=== PATIENT | male | born 1960 | race Caucasian/White ===

== ENCOUNTER 2018-12-05 09:02 | Day surgery (SDC) | payer BC, MEDICARE ==
[2018-11-30 14:26] VITALS: BMI 28.0
[~2018-12-05 09:02] MED LIST: LACTATED RINGERS 1,000 ML IV SCH
[2018-12-05 09:30] VITALS: TEMP 97.6
[2018-12-05] MEDS ORDERED: LIDOCAINE 1% 20 ML VIAL (10MG/ML) FOR IV START INTRADERMA ONE (09:37)
[2018-12-05] MEDS ORDERED: PROPOFOL 10 MG/ML 20 ML VIAL IV ONE (10:08)
--- NOTE | 2018-12-05 10:15 | P.GSHP ---
History of Present Illness H&P Date: 12/05/18 Chief Complaint: Screening colonoscopy This is a 58-year-old male who presents today for screening colonoscopy. Patient has complaints of hemorrhoids. Past Medical History Past Medical History: COPD, Hyperlipidemia, Hypertension, Myocardial Infarction ([place]), Osteoarthritis (OA), Pneumonia, Prostate Disorder Additional Past Medical History / Comment(s): states no current RX for COPD, severe carpal tunnel both wrists, hemmorhoids, occasionally wears back brace Last Myocardial Infarction Date:: 2006 History of Any Multi-Drug Resistant Organisms: None Reported Past Surgical History: Back Surgery, Heart Catheterization, Hernia Repair, Orthopedic Surgery Additional Past Surgical History / Comment(s): back rods and screws, left shoulder surg, left arm surg. Past Anesthesia/Blood Transfusion Reactions: No Reported Reaction Additional Past Anesthesia/Blood Transfusion Reaction / Comment(s): unknown family hx. Smoking Status: Current every day smoker Medications and Allergies Home Medications Medication Instructions Recorded Confirmed Type Aspirin 325 mg PO DAILY 06/13/14 11/30/18 History Atorvastatin [Lipitor] 20 mg PO HS 06/13/14 11/30/18 History Lisinopril [Prinivil] 20 mg PO QAM 06/13/14 11/30/18 History ALPRAZolam [Xanax] 0.5 mg PO HS 11/30/18 11/30/18 History DULoxetine HCL [Cymbalta] 30 mg PO BID 11/30/18 11/30/18 History Ferrous Sulfate [Iron] 325 mg PO DAILY 11/30/18 11/30/18 History Garlic 1 each PO DAILY 11/30/18 11/30/18 History Meloxicam [Mobic] 7.5 mg PO DAILY PRN 11/30/18 11/30/18 History Multivitamins, Thera [Multivitamin 1 tab PO DAILY 11/30/18 11/30/18 History (formulary)] Saw Jackson 160 mg PO DAILY 11/30/18 11/30/18 History Zolpidem [Ambien] 5 mg PO HS 11/30/18 11/30/18 History Allergies Allergy/AdvReac Type Severity Reaction Status Date / Time Penicillins Allergy Anaphylaxis Verified 12/05/18 09:18 Sulfa (Sulfonamide Allergy Dyspnea Verified 12/05/18 09:18 Antibiotics) Surgical - Exam Vital Signs Temp Pulse Resp BP Pulse Ox 97.6 F 105 H 16 134/76 94 L 12/05/18 09:28 12/05/18 09:28 12/05/18 09:28 12/05/18 09:28 12/05/18 09:28 - General well developed, well nourished, no distress - Eyes PERRL - ENT normal pinna - Neck no masses - Respiratory normal expansion - Cardiovascular Rhythm: regular - Abdomen Abdomen: soft, non tender Assessment and Plan Assessment: We'll perform screening colonoscopy.
[2018-12-05 11:01] VITALS: BP 100/70; PULSE 70; RESP 18
--- NOTE | 2018-12-05 11:45 | P.OP ---
Date of Procedure: 12/05/18 Preoperative Diagnosis: Screening colonoscopy Postoperative Diagnosis: Internal and external hemorrhoids Rectal polyp Procedure(s) Performed: Colonoscopy Anesthesia: MAC Surgeon: Cody Pope Pathology: other (Rectal polyp) Condition: stable Disposition: PACU Description of Procedure: The patient's placed on the endoscopy table in the lateral position. He received IV sedation. Digital rectal exam was performed which revealed internal and Hemorrhoids. Flexible colonoscope was then placed patient anus passed throughout the entire colon. The ileocecal valve was visualized. The cecum, ascending and transverse colon appeared normal. In the descending and sigmoid colon there was no abnormalities noted. Scope was brought back the rectum and there was a polyp seen this removed with the snare. Scope was withdrawn through the anus and internal and external hemorrhoids were noted. Scope was withdrawn for patient.
== END 2018-12-05 11:08 | disposition home or self-care (01) ==
LOC: ORWHC2ENDO 09:02
PROVIDERS: ATTEND Surgery
DX: Z12.11 Encounter for screening for malignant neoplasm of colon (principal); D12.8 Benign neoplasm of rectum; K64.4 Residual hemorrhoidal skin tags; K64.8 Other hemorrhoids; J44.9 Chronic obstructive pulmonary disease, unspecified; E78.5 Hyperlipidemia, unspecified; I25.10 Atherosclerotic heart disease of native coronary artery without angina pectoris; I10 Essential (primary) hypertension; I25.2 Old myocardial infarction; M19.90 Unspecified osteoarthritis, unspecified site; Z87.01 Personal history of pneumonia (recurrent); N42.9 Disorder of prostate, unspecified; F17.200 Nicotine dependence, unspecified, uncomplicated; Z79.82 Long term (current) use of aspirin; Z79.899 Other long term (current) drug therapy; Z88.0 Allergy status to penicillin; Z88.2 Allergy status to sulfonamides
CPT/HCPCS: 88305; 45385; J2704

== ENCOUNTER → 2019-11-23 | Outpatient (CLI) | payer MEDICARE ==
--- NOTE | 2019-11-28 10:33 | P.ARTDOP ---
Arterial Doppler LOWER EXTREMITY ARTERIAL DOPPLER: DATE OF SERVICE: 11/23/2019 Reason for study: : Left leg. Doppler waveforms: Multiphasic bilaterally throughout. Pulse volume recording: []. Pressure gradients: None. Ankle-brachial indices: Greater than 1 bilaterally. Toe brachial indices: 0.76 on the right, 0.5 on the left Impression: Normal study..
== END | disposition home or self-care (01) ==
LOC: RADUSWWP 13:28
PROVIDERS: ATTEND Family Medicine
DX: I99.9 Unspecified disorder of circulatory system (principal); Z88.2 Allergy status to sulfonamides; Z88.0 Allergy status to penicillin
CPT/HCPCS: 93923

== ENCOUNTER → 2020-05-08 | Outpatient (CLI) | payer MEDICARE ==
--- NOTE | 2020-05-08 11:19 | CTL ---
EXAMINATION TYPE: CT Low Dose Lung DATE OF EXAM ORDERED: 05/08/2020 HISTORY: 59-year-old male personal history of tobacco use. Lung cancer screening CT DLP: [address] CTDI: 2.8 mGy Automated exposure control for dose reduction was used. SCREENING VISIT: Baseline COMPARISON: None TECHNIQUE: Low dose computed tomography scan was performed through the chest at 1 mm thick sections a nd reconstructed images in the coronal/sagittal plane. Additional coronal MIP reconstructions generat ed. CT DIAGNOSTIC QUALITY: Satisfactory FINDINGS: Heart normal size without pericardial effusion. Aorta normal caliber with a conventional vessel branching anatomy. Minimal atherosclerotic calcificat ions are present. No thoracic lymphadenopathy by CT size criteria. Mild bilateral gynecomastia incidentally noted. There is moderate centrilobular emphysema. No consolidation or pleural effusion. No suspicious pulmon landy nodules. Partially visualized 1.8 cm cortical hypodensity posterior upper pole left kidney. Cyst probable cyst which should be confirmed with ultrasound. Bones: Moderate degenerative disc disease lower thoracic spine, more moderate to severe at L1-L2 with grade 1 retrolisthesis at this level. IMPRESSION: 1. LungsRADS 1 - negative; no suspicious pulmonary nodules. 2. COPD with moderate emphysema. 3. A 1.8 cm cortical lesion upper pole left kidney, probable cyst. RECOMMENDATION: 1. Continue annual low-dose lung cancer screening CT. 2. Smoking cessation. 3. Renal ultrasound to confirm a benign cyst within the upper pole left kidney. FOLLOW UP CT CHEST RECOMMENDATION: One year CT LUNG RAD: Lung-Rad 1 Negative
== END | disposition home or self-care (01) ==
LOC: RADCTMAIN 09:19
PROVIDERS: ATTEND Family Medicine
DX: Z12.2 Encounter for screening for malignant neoplasm of respiratory organs (principal); J43.9 Emphysema, unspecified; F17.210 Nicotine dependence, cigarettes, uncomplicated

== ENCOUNTER → 2021-11-10 | Outpatient (CLI) | payer MEDICARE ==
--- NOTE | 2021-11-10 12:38 | CT ---
EXAMINATION TYPE: CT brain wo con DATE OF EXAM: 11/10/2021 COMPARISON: None available HISTORY: Headache, left upper CT DLP: 1058 mGycm Automated exposure control for dose reduction was used. TECHNIQUE: Multiplanar CT scan of the brain without IV contrast administration. FINDINGS: Unremarkable morphology of the cerebral hemispheres, cerebellum and brainstem. No acute intracranial hemorrhage or gross acute cortical infarct. No midline shift or herniation. Unremarkable basal cister ns, sella and CP angles. No gross space-occupying lesion, vasogenic edema or mass effect. Unremarkable orbits. Mucosal thicken ing with the ethmoid air cells. Clear mastoid air cells. Unremarkable calvarial bones. IMPRESSION: No acute intracranial abnormality or gross space-occupying lesion by this nonenhanced CT scan. Mucosa l thickening of the ethmoid air cells, please correlate clinically. Further MRI assessment can be con sidered if clinically required.
== END ==
LOC: RADCTMAIN 11:40
PROVIDERS: ATTEND Family Medicine
DX: R51.9 Headache, unspecified (principal)
CPT/HCPCS: 70450

== ENCOUNTER 2022-09-20 13:25 | Emergency (ER) | payer MEDICARE ==
--- NOTE | 2022-09-20 13:38 | ED ---
SOB HPI - General Source: patient, RN notes reviewed Mode of arrival: ambulatory Limitations: no limitations <TomAlejo Isidro - Last Filed: 09/20/22 13:37> - General Source: patient, RN notes reviewed Mode of arrival: ambulatory Limitations: no limitations <Garima Godoy - Last Filed: 09/24/22 19:00> - General Stated Complaint: cough, sob Time Seen by Provider: 09/20/22 13:37 - History of Present Illness Initial Comments: 62-year-old male presents emergency Department chief complaint of shortness breath, cough. Patient states that he has COPD patient states that his inhaler is but states he's been using it more frequently. Patient states that he has productive cough, Alejo concerned about pneumonia. Patient states that he's having difficulty time breathing his cough is productive with brown and yellow sputum. Patient denies any sick contacts. Chin does admit to nasal congestion, ear pressure. Patient denies any GI symptoms. (Alejo Santos) 62-year-old male presents to the emergency Department with complaints of increasing shortness of breath and strong productive cough. States he has a history of COPD but has not been using his inhaler as it is . Complains of nasal congestion and sinus pressure as well. Has been taking Coricidin HBP with minimal improvement in symptoms. Complaints of chest pain with coughing, though none at rest. Denies fever, chills, headache, palpitations, abdominal pain, nausea, vomiting, diarrhea or dysuria (Garima Godoy) - Related Data Home Medications Medication Instructions Recorded Confirmed Aspirin 81 mg PO DAILY 06/13/14 09/20/22 Atorvastatin [Lipitor] 20 mg PO DAILY 06/13/14 09/20/22 lisinopriL [Prinivil] 20 mg PO DAILY 06/13/14 09/20/22 Chlorpheniramine/Dextromethorp 1 - 2 tab PO Q4H PRN MDD 12 tabs 09/20/22 09/20/22 [Coricidin Hbp Cough & Cold Tab] Fluticasone/Umeclidin/Vilanter 1 puff INHALATION RT-DAILY 09/20/22 09/20/22 [Trelegy Ellipta 200-62.5-25] HYDROcodone/APAP 10-325MG [[place] 1 tab PO Q6H PRN 09/20/22 09/20/22 10-325] Tamsulosin [Flomax] 0.4 mg PO DAILY 09/20/22 09/20/22 busPIRone HCL 15 mg PO BID 09/20/22 09/20/22 Previous Rx's Medication Instructions Recorded Azithromycin [Zithromax Z Pack] 1 tab PO DIRECTED 5 Days #6 tab 09/20/22 dexAMETHasone [Decadron] 6 mg PO DAILY 9 Days #9 tab 09/20/22 Allergies Allergy/AdvReac Type Severity Reaction Status Date / Time Penicillins Allergy Anaphylaxis Verified 09/20/22 16:50 Sulfa (Sulfonamide Allergy Dyspnea Verified 09/20/22 16:50 Antibiotics) Review of Systems ROS Other: All systems not noted in ROS Statement are negative. <Alejo Santos - Last Filed: 09/20/22 13:37> ROS Other: All systems not noted in ROS Statement are negative. <Garima Godoy - Last Filed: 09/24/22 19:00> ROS Statement: Those systems with pertinent positive or pertinent negative responses have been documented in the HPI. Past Medical History Past Medical History: COPD, Hyperlipidemia, Hypertension, Myocardial Infarction ([place]), Osteoarthritis (OA), Pneumonia, Prostate Disorder Additional Past Medical History / Comment(s): states no current RX for COPD, severe carpal tunnel both wrists, hemmorhoids, occasionally wears back brace Last Myocardial Infarction Date:: 2006 History of Any Multi-Drug Resistant Organisms: None Reported Past Surgical History: Back Surgery, Heart Catheterization, Hernia Repair, Orthopedic Surgery Additional Past Surgical History / Comment(s): back rods and screws, left shoulder surg, left arm surg. Past Anesthesia/Blood Transfusion Reactions: No Reported Reaction Additional Past Anesthesia/Blood Transfusion Reaction / Comment(s): unknown family hx. Past Psychological History: Anxiety Past Alcohol Use History: Occasional Additional Past Alcohol Use History / Comment(s): 1/2-1ppd since age 13 Past Drug Use History: None Reported <Alejo Santos - Last Filed: 09/20/22 13:37> General Exam General appearance: alert, in no apparent distress ENT exam: Present: mucous membranes moist, TM's normal bilaterally Respiratory exam: Present: normal lung sounds bilaterally, other (Strong, congested, productive cough). Absent: respiratory distress, wheezes, rales, rhonchi, stridor, chest wall tenderness Cardiovascular Exam: Present: normal rhythm, tachycardia GI/Abdominal exam: Present: soft, normal bowel sounds. Absent: distended, tenderness, guarding, rebound, rigid Neurological exam: Present: alert, oriented X3, normal gait Psychiatric exam: Present: normal affect, normal mood Skin exam: Present: warm, dry, intact, normal color. Absent: rash <Garima Godoy - Last Filed: 09/24/22 19:00> Course Vital Signs 09/20/22 09/20/22 13:59 17:09 Temperature 98.5 F 98.3 F Pulse Rate 110 H 104 H Respiratory 20 22 Rate Blood Pressure 152/74 127/73 O2 Sat by Pulse 94 L 93 L Oximetry Medical Decision Making - Lab Data Result diagrams: 09/20/22 14:03 09/20/22 14:03 - EKG Data EKG shows normal: sinus rhythm Rate: tachycardia - Radiology Data Radiology results: report reviewed, image reviewed <Garima Godoy - Last Filed: 09/24/22 19:00> - Medical Decision Making 62-year-old male with a past medical history of COPD, hypertension, and previous MO presents to the emergency Department with complaints of shortness of breath and strong congested cough for the past week. Upon exam, patient is well- appearing and in no acute distress. Lung sounds are clear to auscultation. He has an occasional cough though is not bringing up anything at this time. No anginal chest pain. Tolerating oral intake without difficulty. Chest x-ray was obtained and shows no evidence of infiltrate or consolidation. Laboratory studies were obtained showing leukocytosis (WBC 14.8), mild hyponatremia, lactate 0.9, mildly elevated liver enzymes, and positive Covid test. Given his leukocytosis and presenting symptoms, I am concerned that this Covid infection has exacerbated his COPD. Therefore I will start him on a Z-Benito and steroid. Encouraged him to follow up with his PCP for a recheck as soon as possible. Return parameters were discussed in detail. Patient verbalizes understanding and agrees with this plan. Attending: Parra Was pt. sent in by a medical professional or institution? @ -No Did you speak to anyone other than the patient for history? @ -No Did you review nursing and triage notes? @ -Yes, agree Were old charts reviewed? @ -Yes Differential Diagnosis? @ -Influenza, Covid, RSV, pneumonia, CAD, CHF, COPD, asthma, this is not meant to be an exhaustive list EKG interpreted by me (3pts min.)? @ -EKG is interpreted by me shows sinus tachycardia with no evidence of ST segment elevation or depression. X-rays interpreted by me (1pt min.)? @ -Chest x-ray as interpreted by me shows no focal area of consolidation or infiltrate. CT interpreted by me (1pt min.)? @ -Not applicable U/S interpreted by me (1pt. min.)? @ -Not applicable What testing was considered but not performed? (CT, X-rays, U/S, labs)? Why? @ -None What meds were considered but not given? Why? @ -DuoNeb was considered, however patient was not experiencing any shortness of breath, wheezing, or difficulty breathing. Did you discuss the management of the patient with other professionals? @ -None Did you reconcile home meds? @ -No Was smoking cessation discussed for >3mins.? @ -No Was critical care preformed (if so, how long)? @ -No Were there social determinants of health that impacted care today? How? (Homelessness, low income, unemployed, alcoholism, drug addiction, transportation, low edu. Level, literacy, decrease access to med. care, half-way, rehab)? @ -No Was there de-escalation of care discussed even if they declined? (Discuss DNR or withdrawal of care, Hospice)? @ -No What co-morbidities impacted this encounter? (DM, HTN, Smoking, COPD, CAD, Cancer, CVA, Hep., AIDS, mental health diagnosis, sleep apnea, morbid obesity)? @ -COPD, CAD Was patient admitted / discharged? @ -Discharged Undiagnosed new problem with uncertain prognosis? @ -None Drug Therapy requiring intensive monitoring for toxicity (Heparin, Nitro, Insulin, Cardizem)? @ -None Were any procedures done? @ -None Diagnosis/symptom? @ -Exacerbation of COPD secondary to Covid 19 Acute, or Chronic, or Acute on Chronic? @ -Acute on chronic Uncomplicated (without systemic symptoms) or Complicated (systemic symptoms)? @ -Uncomplicated Side effects of treatment? @ -None Exacerbation, Progression, or Severe Exacerbation] @ -Exacerbation Poses a threat to life or bodily function? @ -No (Garima Godoy) - Lab Data Lab Results 09/20/22 09/20/22 09/20/22 Range/Units 14:03 14:03 14:03 WBC 14.8 H (3.8-10.6) k/uL RBC 4.56 (4.30-5.90) m/uL Hgb 14.7 (13.0-17.5) gm/dL Hct 42.3 (39.0-53.0) % MCV 92.7 (80.0-100.0) fL MCH 32.2 (25.0-35.0) pg MCHC 34.7 (31.0-37.0) g/dL RDW 12.2 (11.5-15.5) % Plt Count 179 (150-450) k/uL MPV 8.9 Neutrophils % 78 % Lymphocytes % 12 % Monocytes % 7 % Eosinophils % 1 % Basophils % 0 % Neutrophils # 11.6 H (1.3-7.7) k/uL Lymphocytes # 1.8 (1.0-4.8) k/uL Monocytes # 1.0 (0-1.0) k/uL Eosinophils # 0.1 (0-0.7) k/uL Basophils # 0.1 (0-0.2) k/uL Sodium 134 L (137-145) mmol/L Potassium 3.9 (3.5-5.1) mmol/L Chloride 102 (98-107) mmol/L Carbon Dioxide 23 (22-30) mmol/L Anion Gap 9 mmol/L BUN 11 (9-20) mg/dL Creatinine 0.65 L (0.66-1.25) mg/dL Est GFR (CKD-EPI)AfAm >90 (>60 ml/min/1.73 sqM) Est GFR (CKD-EPI)NonAf >90 (>60 ml/min/1.73 sqM) Glucose 120 H (74-99) mg/dL Plasma Lactic Acid Aynnick (0.7-2.0) mmol/L Calcium 8.5 (8.4-10.2) mg/dL Total Bilirubin 0.5 (0.2-1.3) mg/dL AST 80 H (17-59) U/L ALT 65 H (4-49) U/L Alkaline Phosphatase 87 (38-126) U/L Total Protein 7.5 (6.3-8.2) g/dL Albumin 4.2 (3.5-5.0) g/dL Influenza Type A (PCR) Not Detected (Not Detectd) Influenza Type B (PCR) Not Detected (Not Detectd) RSV (PCR) Not Detected (Not Detectd) SARS-CoV-2 (PCR) Detected A (Not Detectd) 09/20/22 Range/Units 14:03 WBC (3.8-10.6) k/uL RBC (4.30-5.90) m/uL Hgb (13.0-17.5) gm/dL Hct (39.0-53.0) % MCV (80.0-100.0) fL MCH (25.0-35.0) pg MCHC (31.0-37.0) g/dL RDW (11.5-15.5) % Plt Count (150-450) k/uL MPV Neutrophils % % Lymphocytes % % Monocytes % % Eosinophils % % Basophils % % Neutrophils # (1.3-7.7) k/uL Lymphocytes # (1.0-4.8) k/uL Monocytes # (0-1.0) k/uL Eosinophils # (0-0.7) k/uL Basophils # (0-0.2) k/uL Sodium (137-145) mmol/L Potassium (3.5-5.1) mmol/L Chloride (98-107) mmol/L Carbon Dioxide (22-30) mmol/L Anion Gap mmol/L BUN (9-20) mg/dL Creatinine (0.66-1.25) mg/dL Est GFR (CKD-EPI)AfAm (>60 ml/min/1.73 sqM) Est GFR (CKD-EPI)NonAf (>60 ml/min/1.73 sqM) Glucose (74-99) mg/dL Plasma Lactic Acid Yannick 0.9 (0.7-2.0) mmol/L Calcium (8.4-10.2) mg/dL Total Bilirubin (0.2-1.3) mg/dL AST (17-59) U/L ALT (4-49) U/L Alkaline Phosphatase (38-126) U/L Total Protein (6.3-8.2) g/dL Albumin (3.5-5.0) g/dL Influenza Type A (PCR) (Not Detectd) Influenza Type B (PCR) (Not Detectd) RSV (PCR) (Not Detectd) SARS-CoV-2 (PCR) (Not Detectd) - EKG Data EKG Comments: EKG obtained at 1406 shows sinus tachycardia with frequent supraventricular premature complexes, right atrial enlargement, left atrial enlargement, and possible right ventricular conduction delay. Ventricular rate 118, VT interval 128, QRS duration 90, QT/QTC 313/383. Interpretation abnormal ECG. EKG compared to previous exam from 2014 and shows no ischemic changes. (Garima Godoy) - Radiology Data Interpreted by me: Per my interpretation, two-view chest x-ray shows no evidence of consolidation or infiltrate (Garima Godoy) Two-view chest x-ray was obtained. Report was reviewed in its entirety. Impression per Dr. Fernandez is no acute cardiopulmonary process. (Garima Godoy) Disposition <Alejo Santos - Last Filed: 09/20/22 13:37> Is patient prescribed a controlled substance at d/c from ED?: No <Garima Godoy - Last Filed: 09/24/22 19:00> Clinical Impression: COVID-19 Disposition: HOME SELF-CARE Condition: Stable Instructions (If sedation given, give patient instructions): COVID-19 (Coronavirus Disease 2019) (ED) Additional Instructions: You should remain home from 5 days from symptom onset, then wear a mask out in public for the subsequent 5 days. You are being prescribed Decadron which is a steroid. While taking this medication, reduce your intake of sugar and caffeine. Because you have an elevated white blood cell count, you are being prescribed an antibiotic for COPD exacerbation. Continue taking your home medications as prescribed. Call your PCP to discuss Trelegy inhaler. Schedule follow-up appointment to be seen on Tuesday. Return to the emergency department with any new, worsening, or concerning symptoms. Prescriptions: dexAMETHasone [Decadron] 6 mg PO DAILY 9 Days #9 tab Azithromycin [Zithromax Z Pack] 1 tab PO DIRECTED 5 Days #6 tab Referrals: Jet Fang MD [Primary Care Provider] - 1-2 days
[2022-09-20 14:32] LABS: Basophils # (A) 0.1 k/uL (0-0.2); Basophils % (A) 0 %; Eosinophils # (A) 0.1 k/uL (0-0.7); Eosinophils % (A) 1 %; HCT 42.3 % (39.0-53.0); HGB 14.7 gm/dL (13.0-17.5); Lymphocytes # (A) 1.8 k/uL (1.0-4.8); Lymphocytes % (A) 12 %; MCH 32.2 pg (25.0-35.0); MCHC 34.7 g/dL (31.0-37.0); MCV 92.7 fL (80.0-100.0); Mean Platelet Volume 8.9; Monocytes % (A) 7 %; Neutrophils # (A) 11.6 k/uL (1.3-7.7); Neutrophils % (A) 78 %; Platelet Count 179 k/uL (150-450); RBC 4.56 m/uL (4.30-5.90); RDW 12.2 % (11.5-15.5); WBC 14.8 k/uL (3.8-10.6)
[2022-09-20 14:49] LABS: ALT 65 U/L (4-49); AST 80 U/L (17-59); African American GFR (CKD) >90 (>60 ml/min/1.73 sqM); Albumin 4.2 g/dL (3.5-5.0); Alkaline Phosphatase 87 U/L (38-126); Anion Gap 9 mmol/L; Blood Urea Nitrogen 11 mg/dL (9-20); Calcium 8.5 mg/dL (8.4-10.2); Carbon Dioxide 23 mmol/L (22-30); Chloride 102 mmol/L (98-107); Glucose 120 mg/dL (74-99); Non-African American GFR(CKD) >90 (>60 ml/min/1.73 sqM); Potassium 3.9 mmol/L (3.5-5.1); Sodium 134 mmol/L (137-145); Total Bilirubin 0.5 mg/dL (0.2-1.3); Total Protein 7.5 g/dL (6.3-8.2)
--- NOTE | 2022-09-20 14:55 | XR ---
EXAMINATION TYPE: XR chest 2V DATE OF EXAM: 09/20/2022 COMPARISON: Chest x-ray June 24, 2014 HISTORY: Shortness of breath TECHNIQUE: Frontal and lateral views of the chest are obtained. FINDINGS: Improved inspiration on current study. There is no suspicious focal air space opacity, pleu ral effusion, or pneumothorax seen. The cardiac silhouette size remains within normal limits. Surgic al yovanny left humeral head redemonstrated. Surgical change lumbar spine partially imaged. Slight un derlying scoliotic curvature noted. IMPRESSION: No acute cardiopulmonary process.
[2022-09-20] MEDS ORDERED: BENZONATATE 100 MG CAP PO STA (16:23)
[2022-09-20] MEDS ORDERED: dexAMETHasone 2 MG TAB PO STA (16:23)
[2022-09-20 17:10] VITALS: BP 127/73; PULSE 104; RESP 22; TEMP 98.3
== END 2022-09-20 18:02 | disposition home or self-care (01) ==
LOC: EC 13:25
DX: U07.1 COVID-19 (principal); J44.9 Chronic obstructive pulmonary disease, unspecified; E78.5 Hyperlipidemia, unspecified; I10 Essential (primary) hypertension; M19.90 Unspecified osteoarthritis, unspecified site; I25.2 Old myocardial infarction; F41.9 Anxiety disorder, unspecified; Z79.82 Long term (current) use of aspirin; Z79.899 Other long term (current) drug therapy; Z79.1 Long term (current) use of non-steroidal anti-inflammatories (NSAID); Z88.0 Allergy status to penicillin; Z88.2 Allergy status to sulfonamides
CPT/HCPCS: 36415; 93005; 80053; 83605; 85025; 87636; 71046; 99285; J8540

== ENCOUNTER → 2023-07-05 | Outpatient (CLI) | payer MEDICARE ==
--- NOTE | 2023-07-05 08:46 | CTL ---
EXAMINATION TYPE: CT Low Dose Lung DATE OF EXAM ORDERED: 07/05/2023 HISTORY: F17.10 nicotine dependence. Lung cancer screening CT DLP: 83.[address] CTDI: 2.2 mGy Automated exposure control for dose reduction was used. SCREENING VISIT: Follow-up COMPARISON: CT low dose lung 05/08/2020 TECHNIQUE: Low dose computed tomography scan was performed through the chest at 1 mm thick sections a nd reconstructed images in multiple planes at 1 mm and [address] DIAGNOSTIC QUALITY: Satisfactory FINDINGS: LUNG NODULES: No clinically significant pulmonary nodules. LUNGS: COPD: Severity: Moderate centrilobular emphysematous changes. Fibrosis: Severity: None Lymph nodes: None Other findings: None RIGHT PLEURAL SPACE: Effusion: None Calcification: None Thickening: None Pneumothorax: None LEFT PLEURAL SPACE: Effusion: None Calcification: None Thickening: None Pneumothorax: None HEART: Heart Size: Normal Coronary Calcification: None Pericardial Effusion: None OTHER FINDINGS: Upper abdomen: Posterior exophytic left renal 2.5 cm cyst. Bony thorax: No acute process. Orthopedic anchors within the left humeral head. Degenerative changes of the thoracic spine. Supraclavicular region: None Other: Minimal bilateral gynecomastia. Atherosclerotic calcification of the aorta. IMPRESSION: 1. No clinically significant pulmonary nodules. 2. Moderate COPD changes. CT LUNG RAD AND CT CHEST RECOMMENDATION: Lung-Rad 1 Negative: Continue annual screening with LDCT in 12 months. S Modifier (other clinically significant findings): None
== END | disposition home or self-care (01) ==
LOC: RADCTMAIN 05:58
PROVIDERS: ATTEND Family Medicine
DX: J44.9 Chronic obstructive pulmonary disease, unspecified (principal); F17.210 Nicotine dependence, cigarettes, uncomplicated; Z12.2 Encounter for screening for malignant neoplasm of respiratory organs
CPT/HCPCS: 71271

== ENCOUNTER → 2024-05-25 | Outpatient (CLI) | payer MEDICARE ==
--- NOTE | 2024-05-25 18:04 | MR ---
EXAMINATION TYPE: MR brain wo con DATE OF EXAM: 05/25/2024 5:55 PM COMPARISON: CT brain 11/10/2021. 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 No gadolinium was gi usama. FINDINGS: The valladares-white junctions, ventricular system, and cisterns appear unremarkable. No suspicious FLAIR signal abnormalities.. Midline structures show no abnormality. Diffusion-weighted imaging shows no ev idence of restricted diffusion. The susceptibility weighted images do not reveal any evidence for aspen ro-hemorrhage. Age-appropriate cerebral volume. The bone marrow signal is within normal limits. The globes are unremarkable. Moderate mucosal thicken ing of the ethmoid sinuses with a 1.2 cm T2 hyperintense likely mucous retention cyst within the righ t maxillary sinus. Mild mucosal thickening of the bilateral frontal sinuses left greater than right. Sphenoid sinus appears clear. Trace T2 hyperintensity within the left mastoid air cells. IMPRESSION: 1. No evidence of intracranial mass or acute/subacute infarct. 2. Paranasal sinus disease which is most pronounced in the bilateral ethmoid sinuses. Additional trac e left mastoid effusion.
== END | disposition home or self-care (01) ==
LOC: RADMRIMAIN 16:57
PROVIDERS: ATTEND Family Medicine
DX: G43.009 Migraine without aura, not intractable, without status migrainosus
CPT/HCPCS: 70551